=== PATIENT | female | born 1940 | race Caucasian/White ===

== ENCOUNTER 2017-11-09 13:57 | Observation (INO) | payer MEDICARE, BC ==
[2017-11-09] VITALS (7 sets, daily range): BP systolic 105–137; BP diastolic 58–74
[~2017-11-09] VITALS: Ht 157.5 cm; Wt 55.5 kg
--- NOTE | ~2017-11-09 | HP ---
PATIENT: ELMA HERNANDEZ MEDICAL RECORD: [id number] ACCOUNT: [id number] LOCATION:[facility] D.2110 : 39 ADMISSION DATE: 11/09/17 HISTORY AND PHYSICAL EXAMINATION HISTORY: A 77-year-old female with known history of coronary artery disease as history. She has hypertension, onset yesterday of chest pain, more of a tightness and pressure with marked dyspnea and diaphoresis, occurred with exertion, fairly active, no set of exercise program. Cardiac enzymes were negative, did have some radiation to the neck, nausea as well. PAST MEDICAL HISTORY: 1. History of hypertension, currently off medications. 2. Osteoarthritis. MEDICATIONS: Include Aricept 10 at bedtime, Protonix 40 every day, Dyazide 37.5/25 every day, potassium supplementation 10 every day, tramadol 50 every day, Zoloft 100 every day, Zyrtec 10 every day. SOCIAL HISTORY: She is nonsmoker, nondrinker. Takes care of her ADLs. Good family supports. REVIEW OF SYSTEMS: The patient reports easy bruising but reports no swollen glands. The patient reports no fever, no night sweats, no significant weight gain, no significant weight loss. No significant exercise tolerance. The patient reports no dry eyes, no irritation, no vision change. Patient reports no difficulty hearing and no ear pain. Patient reports no frequent nose bleeds or nose and sinus problems. Patient reports on arm pain on exertion. No shortness of breath while lying down. No history of heart murmur. Patient reports no cough, no wheezing or coughing up blood. Patient reports no abdominal pain, no vomiting. Normal appetite. No diarrhea and not vomiting blood. No nausea and no constipation. Patient reports no incontinence. No difficulty urinating. No hematuria. No increased frequency. Patient reports no muscle aches. No weakness, no arthralgias, no back pain. No swelling of the extremities. Patient reports no abnormal mole, no jaundice, no rashes. Reports no loss of consciousness. No weakness and no numbness. No seizures, dizziness, or headaches. The patient reports no depression, no sleep disturbance, feeling safe in a relationship and no alcohol abuse. Patient reports on fatigue. Reports no runny nose or sinus pressure. No itching, no hives, and no frequent sneezing. PHYSICAL EXAMINATION: GENERAL: Pleasant female in no acute distress, appears stated age. VITAL SIGNS: Blood pressure 144/76, pulse 79 and regular. HEENT: No sinus tract. No bruits. NECK: No JVD or bruit. HEART: Regular. A II/ systolic ejection murmur. LUNGS: Good air excursion. ABDOMEN: Soft and nontender. EXTREMITIES: Pulses are well preserved, 2+ with no edema. DIAGNOSTIC DATA: ECG without acute change. IMPRESSION: Accelerated angina, acute coronary syndrome. HISTORY AND PHYSICAL [id number] ELMA HERNANDEZ PLAN: For diagnostic angiography, intervention based on the above. TRANSINT:[id number] Voice Confirmation ID: [id number] DOCUMENT ID: [id number] BERNARDO GONCALVES MD at 0816 CC: [id number] DICTATION DATE: 11/10/17747 SUPERVISOR PLEATING: 11/10/17 0933 DIS IN 11/11/17 [id number] [place] [address]
--- NOTE | ~2017-11-09 | HEMODYNAMI ---
PATIENT:ELMA HERNANDEZ MEDICAL RECORD: [id number] : 38 LOCATION:[facility] D.2111 ADMISSION DATE: 11/09/17 Generatedon:11/10/201712:23 Patient name: ELMA HERNANDEZ Patient #: [id number] SSN: DO B: 1940 Date of study: 11/10/2017 Page: Of Hemodynamic Procedure Report Patient Data Patient Demographics Procedure consent was obtained First Name: ELMA Gender: Female Last Name: MARY : 1940 Middle Initial: H Age: 77 year(s) Patient #: [id number] Race: Unknown Additional ID: [id number] Contact details Address: [address] [place] [address] State: [place] City: [place] Zip code: [address] Admission Admission Data Admission Date: 11/09/2017 Admission Time: 17:00 Room #: D.2111 Lab Results Lab Result Date: 11/10/2017 Lab Result Time: 0:00 Biochemistry Name Units Result Min Max BUN mg/dl 15 --(--*-)-- 7 18 Creatinine mg/dl 0.9 --(-*--)-- 0.6 1.3 CBC Name Units Result Min Max Hemoglobin g/dl 14.4 --(*---)-- 13.5 17.5 Procedure Procedure Types Cath Procedure Diagnostic Procedure LHC LH w/Coronaries Procedure Description Procedure Date Procedure Date: 11/10/2017 Procedure Start Time: 12:11 Procedure End Time: 12:22 Procedure Staff Name Function Juan Roche MD Performing Physician Lizeth Ann RT Monitor Deanna Gastelum RT Scrub Cali Ford RN Nurse Procedure Data Cath Procedure Fluoroscopy Diagnostic fluoroscopy Total fluoroscopy Time: 1.9 time: 1.9 min min Diagnostic fluoroscopy Total fluoroscopy dose: 213 dose: 213 mGy mGy Contrast Material Contrast Material Type Amount (ml) Isovue 300 24 Entry Location Entry Primary Successful Side Size Upsize Upsize Entry Closure Wetzel ccessful Closure Location (Fr) 1 (Fr) 2 (Fr) Remarks Device Remarks Radial Right 6 Fr Mechanical artery Short Compression Estimated blood loss: 5 ml Diagnostic catheters Device Type Used For End Catheter Placement DIAGNOSTIC Dimas 110cm Multi-vessel 5Fr catheter ([id number]) Angiography Procedure Complications No complications Procedure Medications Medication Administration Route Dosage 0.9% NaCl I.V. 100 ml/hr Oxygen etCO2 Nasal cannula 2 l/min Heparin Flush Bag added to field 2 bags (1000units/500ml NS) Lidocaine 2% added to field 20 Radial Cocktail added to field 1 syringe (Verapomil 2mg/Nitro 400mcg/Heparin 1500units) Versed I.V. 2 mg Fentanyl I.V. 50 mcg Radial Cocktail I.A. 1 syringe (Verapomil 2mg/Nitro 400mcg/Heparin 1500units) Hemodynamics Rest HGB: 14.4 (g/dl) Heart Rate: 68 (bpm) Pressure Samples Time Site Value (mmHg) Purpose Heart Use Rate(bpm) 12:18 LV 113/-7,7 EDP 81 Gradients Valve Time Site Site Mean SEP/DFP Peak To Heart Use 1 2 (mmHg) (sec/min) Peak Rate (mmHg) (bpm) Aortic 12:18 LV AO 96 Snapshots Pre Cath Intra NCS Post Cath Vital Signs Time Heart Resp SPO2 etCO2 NIBP Rhythm Pain Sedation Rate (ipm) (%) (mmHg) (mmHg) Status Level (bpm) 11:57:25 66 11 98 23.3 114/62(95) NSR 0 (11) 10(A) , No pain 12:02:00 69 14 98 22.6 117/64(90) NSR 0 (11) 10(A) , No pain 12:07:15 67 16 96 23.3 112/63(90) NSR 0 (11) 10(A) , No pain 12:11:47 76 17 98 23.3 114/65(97) NSR 0 (11) 10(A) , No pain 12:16:20 73 13 95 26.3 103/58(87) NSR 0 (11) 10(A) , No pain 12:21:05 78 15 97 13.5 102/58(81) NSR 0 (11) 10(A) , No pain Medications Time Medication Route Dose Verified Delivered Reason Notes Effectiveness by by 12:00:30 0.9% NaCl I.V. 100 Cali Cali Per ml/hr Liliana Ford physician RN RN 12:00:42 Oxygen etCO2 2 l/min Cali Cali Per Nasal Liliana Ford physician cannula RN RN 12:00:53 Heparin Flush added 2 bags Cali Cali used for Bag to Lorigan Liliana procedure (1000units/500ml field RN RN NS) 12:01:06 Lidocaine 2% added 20ml Cali Cali for local to vial Lorigan Lorigan anesthetic field RN RN 12:01:18 Radial Cocktail added 1 Cali Cali used for (Verapomil to syringe Lorigan Lorigan procedure 2mg/Nitro field RN RN 400mcg/Heparin 1500units) 12:09:37 Versed I.V. 2 mg Cali Cali for sedation Liliana Ford RN RN 12:09:47 Fentanyl I.V. 50 mcg Cali Cali for sedation Liliana Ford RN RN 12:13:33 Radial Cocktail I.A. 1 Cali Juan for (Verapomil syringe Liliana Roche MD vasodilation 2mg/Nitro RN 400mcg/Heparin 1500units) Procedure Log Time Note 11:30:09 Cali Ford RN sent for patient. Start room use. 11:30:10 Time tracking: Regular hours (M-F 7:00 - 5:00) 11:30:14 Plan of Care:Hemodynamics will remain stable., Cardiac rhythm will remain stable., Comfort level will be maintained., Respiratory function will remain adequate., Patient/ family verbilizes understanding of procedure., Procedure tolerated without complication., Recovers from procedure without complications.. 11:30:15 Signed procedure consent form obtained from patient. ::29 Lab Result : BUN 15 mg/dl ::29 Lab Result : Creatinine 0.9 mg/dl ::29 Lab Result : Hemoglobin 14.4 g/dl 11::53 Patient received from Med II to CCL 1 Alert and oriented. Tansferred to table in Supine position. 11:41:54 Warm blankets applied, and remy hugger turned on for patient comfort. 11:41:54 Correct patient and procedure confirmed by team. 11:41:57 ECG and BP/O2 sat monitors applied to patient. 11:56:29 Vital chart was started 11:56:30 Baseline sample Acquired. 11:56:35 Rhythm: sinus rhythm 11:56:38 Full Disclosure recording started 11:56:43 H&P Date Dictated: 11/10/2017 Within 30 days and on chart., H&P Addendum completed by physician on day of procedure. (MUST COMPLETE FOR ALL OUTPATIENTS). 11:56:45 Pre-procedure instructions explained to patient. 11:56:45 Pre-op teaching completed and patient verbalized understanding. 11:56:47 Family in waiting room. 11:56:49 Patient NPO since Midnight. 11:56:52 Is the patient allergic to Iodine/contrast media? No. 11:56:55 Was the patient premedicated? No 11:56:56 Is patient on blood thinner?No 11:56:58 Patient diabetic? No. 11:57:01 Previous problem with sedation/anesthesia? No ? 11:57:21 Snore? Yes 11:57:23 Sleep apnea? Yes 11:57:27 Deviated septum? No 11:57:28 Opens mouth fully? Yes 11:57:28 Sticks out tongue? Yes 11:57:31 Airway obstruction? No ? 11:57:35 Dentures? No ? 11:57:40 Pre procedure: right dorsailis pedis pulse 2+ Normal; easily identifiable; not easily obliterated 11:57:43 Pre procedure: left dorsailis pedis pulse 2+ Normal; easily identifiable; not easily obliterated 11:57:45 Patient pain scale 0/10 ?. 11:57:56 IV patent on arrival in right antecubital with 0.9% NaCl at [facility]. 11:57:58 Lab results completed and on chart. 11:58:03 Right Radial & Right Groin area was prepped with chlora-prep and draped in sterile fashion 11:58:10 Alarms reviewed by R. N. 11:58:12 Sharps counted by scrub and verified by R.N. 11:59:51 Zero performed for pressure channel P1 12:00:30 0.9% NaCl 100 ml/hr I.V. was administered by Cali Ford RN; Per physician; 12:00:42 Oxygen 2 l/min etCO2 Nasal cannula was administered by Cali Ford RN; Per physician; 12:00:53 Heparin Flush Bag (1000units/500ml NS) 2 bags added to field was administered by Cali Ford RN; used for procedure; 12:01:06 Lidocaine 2% 20ml vial added to field was administered by Cali Ford RN; for local anesthetic; 12:01:18 Radial Cocktail (Verapomil 2mg/Nitro 400mcg/Heparin 1500units) 1 syringe added to field was administered by Cali Ford RN; used for procedure; 12:08:11 Physician arrived 12:08:12 --------ALL STOP TIME OUT------ 12:08:13 Final Timeout: patient, procedure, and site verified with staff and physician. All members of the team are in agreement. 12:08:21 Right Radial & Right Groin site verified by team. 12:08:26 Physical assessment completed. ASA score P 2 - A patient with mild systemic disease as per Juan Roche MD. 12:08:36 Sedation plan: IV Moderate Sedation Medication:Versed, Fentanyl 12:08:40 Use device set Radial Dx or PCI 12:08:41 ACIST Syringe (43872) opened to sterile field. 12:08:41 Medline Cath Pack ([id number]) opened to sterile field. 12:08:42 Bag Decanter (2002S) opened to sterile field. 12:08:42 DIAGNOSTIC WIRE .035 260cm J wire (295521) opened to sterile field. 12:08:43 ACIST Hand Control (85931) opened to sterile field. 12:08:43 ACIST Manifold (58620) opened to sterile field. 12:08:44 Tegaderm 4 x 4 (1626W) opened to sterile field. 12:08:44 MBrace Wrist Support ([id number]) opened to sterile field. 12:08:46 SHEATH 6Fr Prelude Radial ([id number]) opened to sterile field. 12:09:37 Versed 2 mg I.V. was administered by Cali Ford RN; for sedation; 12:09:47 Fentanyl 50 mcg I.V. was administered by Cali Ford RN; for sedation; 12:11:50 Procedure started. 12:11:55 Local anesthetic to right radial artery with Lidocaine 2% by Juan Roche MD.INITIAL ACCESS ONLY 12:12:28 A 6 Fr Short sheath was inserted into the Right Radial artery 12:13:33 Radial Cocktail (Verapomil 2mg/Nitro 400mcg/Heparin 1500units) 1 syringe I.A. was administered by Juan Roche MD; for vasodilation; 12:14:07 A DIAGNOSTIC Dimas 110cm 5Fr catheter (750117) was advanced over the wire and used for Multi-vessel Angiography. 12:16:13 GLIDE WIRE ANGLE 260cm ([id number]) opened to sterile field. 12:18:17 LV hemodynamics recorded. 12:18:18 LV gram done using LINDA 12:18:21 Injector settings: Ml/sec: 12, Volume: 8, 12:18:59 RCA angiography performed. 12:19:01 Injector settings: Ml/sec: 3, Volume: 6, 12:19:33 LCA angiography performed. 12:19:36 Injector settings: Ml/sec: 3, Volume: 6, 12:20:12 Catheter removed. 12:20:40 TR BAND Standard ([id number]) opened to sterile field. 12:21:08 Sheath removed intact; hemostasis achieved with Mechanical Compression to the Right Radial artery. 12:21:10 Procedure ended.(Physican Out) 12:21:23 Fluoroscopy time 01.90 minutes. 12:21:28 Flurop Dose total: 213 12:21:28 Fluoroscopy dose: 213 mGy 12:21:31 Contrast amount:Isovue 300 24ml. 12:21:48 TR band inflated with 10cc of air. 12:21:49 Insertion/operative site no bleeding no hematoma. 12:21:56 Post right radial artery:stable 12:21:58 Post Procedure Pulses reassessed and unchanged 12:22:01 Post procedure rhythm: unchanged. 12:22:03 Estimated blood loss: 5 ml 12:22:06 Post procedure instruction explained to patient.Patient verbalizes understanding. 12:22:06 Patient needs reinforcement of post procedure teaching. 12:22:13 Procedure and supply charges have been captured, reviewed, submitted and are correct. 12:22:18 Procedure Complication : No complications 12:22:20 Vital chart was stopped 12:22:21 See physician's report for complete and final results. 12:22:24 Report given to [facility] II. 12:22:27 Patient transfered to [facility] with Stretcher. 12:22:30 Procedure ended. 12:22:30 Full Disclosure recording stopped 12:22:37 End room use (Document Last) Device Usage Item Name Manufacture Quantity Catalog Number Hospital Part Current M inimal Lot# / Charge Number Stock Stock Serial# Code ACIST Syringe Acist 1 60851 298692 089745 814124 2 0 (21901) [employer] Medline Cath Cardinal 1 [id number] 173389 21070 324891 5 Pack Health ([id number]) Bag Decanter Microtek 1 2001S 980740 55669 401554 5 (2001S) Medical Inc. DIAGNOSTIC WIRE St Ted 1 667607 368250 614269 301412 3 0 .035 260cm J wire (373964) ACIST Hand Acist 1 71375 716153 354528 207808 5 Control (62544) [employer] ACIST Manifold Acist 1 89861 037992 061785 229593 5 (42656) [employer] Tegaderm 4 x 4 3M 1 1626W 170172 271077 072869 5 (1626W) MBrace Wrist Advanced 1 140-0250-00 058252 39253 750433 5 Support Vascular ([id number]) Dynamics SHEATH 6Fr Merit 1 [id number] 808180 584744 930481 5 Prelude Radial Medical ([id number]) DIAGNOSTIC Terumo 1 40-0297 266524 685709 226552 5 Dimas 110cm 5Fr catheter (919402) GLIDE WIRE Terumo 1 [id number] 771805 192122 100293 5 ANGLE 260cm (FT1123) TR BAND Terumo 1 [id number] 766937 759734 020195 4 0 Standard ([id number]) Signature Audit [place] Stage Time Signature Unsigned Intra-Procedure 11/10/2017 Lizeth Ann 12:23:56 PM RT(R) Signatures Monitor : Lizeth Ann RT Signature : Date : Time : [facility] [address] [place] [address]
[2017-11-09] MEDS ORDERED: ZOLOFT100 MG (14:43)
[2017-11-09] MEDS ORDERED: ULTRAM50 MG PO (14:44)
[2017-11-09] MEDS ORDERED: PROTONIX40 MG (14:44)
[2017-11-09] MEDS ORDERED: ARICEPT10 MG PO (14:44)
[2017-11-09] MEDS ORDERED: ZYRTEC10 MG PO (14:45)
[2017-11-09] MEDS ORDERED: K-TAB10 MEQ (14:45)
[2017-11-09] MEDS ORDERED: DYAZIDE 37.5/251 CAP (14:45)
[2017-11-09 15:08] LABS: BASOPHILS 0.5 % (0-2); EOSINOPHILS 1.4 % (0-7); HEMATOCRIT 40.8 % (36.0-48.0); HEMOGLOBIN 14.4 g/dL (12-16); IMMATURE GRANULOCYTES 0.2 % (0-5); LYMPHOCYTES 21.4 % (15-50); MCH 33.3 pg (26.0-34.0); MCHC 35.3 g/dL (31.0-37.0); MCV 94.2 fL (80.0-100.0); MEAN PLATELET VOLUME 10.2 fL (7.4-10.4); MONOCYTES 9.3 % (2-11); NEUTROPHILS 67.2 % (40-80); PLATELET COUNT 173 10x3/uL (130-400); RBC 4.33 10x6/uL (4.00-5.40); WBC 4.3 10x3/uL (4.8-10.8)
[2017-11-09 15:23] LABS: ALBUMIN 3.7 g/dL (3.4-5.0); ALKALINE PHOSPHATASE 66 U/L (46-116); ALT (SGPT) 22 U/L (10-68); BILIRUBIN - TOTAL 0.59 mg/dL (0.2-1.3); CALC OSMOLALITY 282 mosm/kg (275-300); CALCIUM 8.8 mg/dL (8.5-10.1); CARBON DIOXIDE 29.8 mmol/L (21.0-32.0); CHLORIDE - SERUM 105 mmol/L (98-107); CREATININE - SERUM 0.9 mg/dL (0.6-1.3); GLUCOSE 88 mg/dL (74-106); POTASSIUM - SERUM 3.1 mmol/L (3.5-5.1); PROTEIN - SERUM 6.7 g/dL (6.4-8.2); SODIUM 142 mmol/L (136-145); UREA NITROGEN 15 mg/dL (7-18); eGFR NON AFRICAN AMERICAN 64 mL/min (90-120)
[2017-11-09 15:25] LABS: LIPASE 183 U/L (73-393)
[2017-11-09 15:27] LABS: TROPONIN-I < 0.017 ng/mL (0.000-0.060)
[2017-11-09 15:55] LABS: APPEARANCE CLEAR (CLEAR); BILIRUBIN NEGATIVE (NEGATIVE); COLOR YELLOW (YELLOW); GLUCOSE NEGATIVE (NEGATIVE); KETONE NEGATIVE (NEGATIVE); NITRITE NEGATIVE (NEGATIVE); PROTEIN NEGATIVE (NEGATIVE); SPECIFIC GRAVITY 1.005 (1.005-1.020); UROBILINOGEN NORMAL (NORMAL)
[2017-11-09 15:56] LABS: WHITE CELLS - URINE 0-5 /hpf (0-5)
[2017-11-09 15:57] LABS: BACTERIA FEW /hpf (NONE SEEN); EPITHELIAL CELLS 0-5 /hpf (0-5)
[2017-11-09 20:41] LABS: CKMB 2.2 U/L (0.0-3.6); CREATINE KINASE 83 UL (21-215); TROPONIN-I < 0.017 ng/mL (0.000-0.060)
[2017-11-10] VITALS: BP 103/60; BP 144/74
[2017-11-10 02:05] LABS: CKMB 1.6 U/L (0.0-3.6); CREATINE KINASE 57 UL (21-215)
[2017-11-10 02:06] LABS: TROPONIN-I < 0.017 ng/mL (0.000-0.060)
[2017-11-10 04:55] VITALS: BP 144/67
[2017-11-10 08:26] LABS: HEMATOCRIT 40.7 % (36.0-48.0); MCH 33.1 pg (26.0-34.0); MCHC 34.4 g/dL (31.0-37.0); MEAN PLATELET VOLUME 9.8 fL (7.4-10.4); PLATELET COUNT 142 10x3/uL (130-400); RBC 4.23 10x6/uL (4.00-5.40); RDW 13.2 % (11.5-14.5)
[2017-11-10 08:35] LABS: MCV 96.2 fL (80.0-100.0)
[2017-11-10 08:53] LABS: CALC OSMOLALITY 286 mosm/kg (275-300); CALCIUM 8.6 mg/dL (8.5-10.1); CARBON DIOXIDE 31.1 mmol/L (21.0-32.0); CHLORIDE - SERUM 107 mmol/L (98-107); CKMB 1.4 U/L (0.0-3.6); CREATINE KINASE 58 UL (21-215); CREATININE - SERUM 0.8 mg/dL (0.6-1.3); GLUCOSE 108 mg/dL (74-106); POTASSIUM - SERUM 3.5 mmol/L (3.5-5.1); SODIUM 143 mmol/L (136-145); TROPONIN-I < 0.017 ng/mL (0.000-0.060); UREA NITROGEN 15 mg/dL (7-18); eGFR NON AFRICAN AMERICAN 73 mL/min (90-120)
[2017-11-10 09:07] LABS: LYMPHOCYTES 20 % (15-50); MONOCYTES 2 % (2-11); NEUTROPHILS 77 % (40-80); PLATELET ESTIMATE NORMAL
[2017-11-10 09:23] VITALS: BP 138/64
[2017-11-10 11:50] VITALS: BP 120/66
[2017-11-10 12:52] VITALS: Ht 157.5 cm; Wt 55.5 kg
[2017-11-10 20:00] VITALS: BP 126/54
[2017-11-10 21:37] VITALS: BP 126/54
[2017-11-11 01:21] VITALS: BP 118/62
[2017-11-11 01:32] VITALS: BP 118/62
[2017-11-11 06:11] VITALS: BP 106/50
[2017-11-11 09:07] VITALS: BP 128/69
== END 2017-11-11 11:34 | disposition home or self-care (01) ==
LOC: D.ER 13:57 → D.EDHOLD 17:00 → OBSVTIME 17:00 → D.M2 17:00
PROVIDERS: Emergency Medicine; Internal Medicine Interventional Cardiology
DX: E87.6 Hypokalemia (principal); R07.9 Chest pain, unspecified; R55 Syncope and collapse; I25.10 Atherosclerotic heart disease of native coronary artery without angina pectoris; I10 Essential (primary) hypertension; M19.90 Unspecified osteoarthritis, unspecified site; C85.90 Non-Hodgkin lymphoma, unspecified, unspecified site; M41.9 Scoliosis, unspecified; I95.9 Hypotension, unspecified; G62.9 Polyneuropathy, unspecified; K21.9 Gastro-esophageal reflux disease without esophagitis; R26.89 Other abnormalities of gait and mobility; Z87.891 Personal history of nicotine dependence; F03.90 Unspecified dementia, unspecified severity, without behavioral disturbance, psychotic disturbance, mood disturbance, and anxiety